=== PATIENT | male | born 1950 | race African-American/Black ===

== ENCOUNTER 2018-06-23 07:15 | Emergency (ER) | payer OTHER ==
[~2018-06-23] VITALS: Ht 175.3 cm; Wt 81.7 kg
[~2018-06-23 07:15] MED LIST: ADULT LOW DOSE81 MG; ALEVE220 M1; BACTRIM DS TAB1 EACH PO; LYRICA150 MG; NEURONTIN 300300 M1; PYRIDIUM100 MG PO; SYNTHROID150 MCG PO; VITAMIN C120 GM; VITAMIN D2400 UNIT
[2018-06-23 07:47] LABS: URINE BILIRUBIN NEGATIVE (Negative); URINE BLOOD TRACE (Negative); URINE CLARITY CLEAR; URINE COLOR YELLOW; URINE GLUCOSE-RANDOM* NEGATIVE (Negative); URINE KETONES NEGATIVE (Negative); URINE LEUKOCYTES-REFLEX NEGATIVE (Negative); URINE NITRITE-REFLEX NEGATIVE (Negative); URINE PROTEIN (DIPSTICK) NEGATIVE (Negative); URINE UROBILINOGEN 0.2 E.U./dl (0.2-1.0)
[2018-06-23] MEDS ORDERED: PREDNISONE 5 MG5 M1 PO (08:05)
[2018-06-23] MEDS ORDERED: TIMOLOL GL0.5 %/5 M1 OPHTHALMIC (08:05)
[2018-06-23] MEDS ORDERED: OCUFLOX5 ML OPHTHALMIC (08:06)
[2018-06-23] MEDS ORDERED: DUREZOL5 ML OPHTHALMIC (08:07)
[2018-06-23] MEDS ORDERED: PREDNISONE 10 M10 MG OPHTHALMIC (08:07)
[2018-06-23] MEDS ORDERED: XALATAN2.5 ML OPHTHALMIC (08:07)
[2018-06-23] MEDS ORDERED: FLOMAX0.4 MG PO (08:08)
[2018-06-23 09:09] VITALS: BP 145/95
== END 2018-06-23 09:09 | disposition home or self-care (01) ==
LOC: ER 07:15
PROVIDERS: Emergency Medicine
DX: R33.9 Retention of urine, unspecified (principal); R31.9 Hematuria, unspecified